=== PATIENT | female | born 1960 | race Caucasian/White ===

== ENCOUNTER 2019-05-04 11:08 | Emergency (ER) | payer OTHER ==
--- OUTSIDE RECORDS SUMMARY | 2019-05-04 11:12 | XMS REPORT ---
:1960 [facility] Address [address] [place] [address] Dr. Swenson [address] [place] [id number] Care Team Providers Name Role Phone Unavailable Unavailable Unavailable Problems This patient has no known problems. Allergies, Adverse Reactions, Alerts This patient has no known allergies or adverse reactions. Medications This patient has no known medications.
--- OUTSIDE RECORDS SUMMARY | 2019-05-04 11:12 | XMS REPORT | Clinical Summary ---
:1960 Author Organization [facility] Address [address] [place] [address] Care Team Providers Name Role Phone Florence Adrian MD Primary Care Provider Allergies Active Allergy Reactions Severity Noted Date Comments No Known Drug Allergies 09/18/2016 Medications Medication Sig Dispensed Refills Start Date End Date Status valACYclovir Take 1 tablet 0 Active (VALTREX) 500 MG by mouth every tablet morning. BOTOX 100 unit recon 0 05/07/2017 Active soln dexlansoprazole 0 09/29/2018 Active (DEXILANT) 60 mg capsule losartan (COZAAR) 25 Take 25 mg by 0 12/16/2018 Active MG tablet mouth daily. tiZANidine (ZANAFLEX) 1 or 2 po qhs 60 tablet 5 12/29/2018 Active 2 MG tablet prn muscle spasm LORAZepam (ATIVAN) 1 Take 1 tablet 60 tablet 4 12/29/2018 Active MG tablet (1 mg total) 0 by mouth 2 (two) times a day. traMADol (ULTRAM) 50 TAKE 1 TABLET 90 tablet 0 03/29/2019 Active mg tablet BY MOUTH THREE 0 TIMES DAILY conj Take 1 tablet 0 Discontinued estrog-medroxyprogest by mouth 9 alvina (PREMPRO) daily. 0.625-2.5 mg per tablet tiZANidine (ZANAFLEX) TAKE 1 30 tablet 0 10/02/2017 Discontinued 2 MG tablet TABLET(2 MG) 8 BY MOUTH DAILY NEEDED FOR NECK SPASM OR PAIN LORAZepam (ATIVAN) 1 TAKE 1 TABLET 60 tablet 5 11/10/2017 Discontinued MG tablet BY MOUTH TWICE 8 DAILY. losartan (COZAAR) 25 Take 25 mg by 0 Discontinued MG tablet mouth as 8 needed. VITAMIN B COMPLEX (B Take 1 tablet 0 Discontinued COMPLEX ORAL) by mouth 8 daily. ascorbic acid, Take 1,000 mg 0 Discontinued vitamin C, (vitamin by mouth 8 C) 1000 MG tablet daily. traMADol (ULTRAM) 50 TAKE 1 TABLET 90 tablet 0 03/10/2018 Discontinued mg tablet BY MOUTH THREE 8 TIMES DAILY LORAZepam (ATIVAN) 1 TAKE 1 TABLET 60 tablet 0 05/06/2018 Discontinued MG tablet BY MOUTH TWICE 8 DAILY LORAZepam (ATIVAN) 1 TAKE 1 TABLET 60 tablet 0 06/04/2018 Discontinued MG tablet BY MOUTH TWICE 8 DAILY traMADol (ULTRAM) 50 Take 1 tablet 90 tablet 0 06/05/2018 Discontinued mg tablet (50 mg total) 8 by mouth 3 (three) times a day. LORAZepam (ATIVAN) 1 TAKE 1 TABLET 60 tablet 0 07/07/2018 Discontinued MG tablet BY MOUTH TWICE 8 DAILY LORAZepam (ATIVAN) 1 TAKE 1 TABLET 60 tablet 0 08/03/2018 Discontinued MG tablet BY MOUTH TWICE 8 DAILY traMADol (ULTRAM) 50 TAKE 1 TABLET 90 tablet 3 08/03/2018 Discontinued mg tablet BY MOUTH THREE 9 TIMES DAILY. LORAZepam (ATIVAN) 1 TAKE 1 TABLET 60 tablet 0 08/27/2018 Discontinued MG tablet BY MOUTH TWICE 8 DAILY LORAZepam (ATIVAN) 1 TAKE 1 TABLET 60 tablet 0 09/25/2018 Discontinued MG tablet BY MOUTH TWICE 8 DAILY ranitidine (ZANTAC) Take 150 mg by 0 Discontinued 75 MG tablet mouth daily. 8 amitriptyline Titrate as 90 tablet 11 09/22/2018 Discontinued (ELAVIL) 25 MG tablet directed up to 8 3 po qhs LORAZepam (ATIVAN) 1 TAKE 1 TABLET 60 tablet 0 10/23/2018 Discontinued MG tablet BY MOUTH TWICE 9 DAILY amitriptyline Take 25 mg by 11 12/14/2018 Discontinued (ELAVIL) 25 MG tablet mouth nightly. 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: Overview: cervical dystonia Palpitations 10/05/2018 Essential hypertension 10/05/2018 SOB (shortness of breath) 07/22/2017 Chest pain 07/22/2017 MVP (mitral valve prolapse) 07/22/2017 Other benign neoplasm of skin of unspecified upper limb, including 01/23/2017 shoulder Segmental dystonia 09/18/2016 Spasmodic torticollis 09/18/2016 Multinodular goiter 02/08/2015 Hemangioma 01/24/2015 Seborrheic keratosis 01/24/2015 Senile lentigo 01/24/2015 Melanoma in situ 10/27/2011 Overview: Overview: Left lateral breast, Tai level II melanoma Encounters Date Type Specialty Care Team Description 04/20/2019 Clinical Support Neurology Jason Heath Spasmodic torticollis ( Primary Dx); MD Antwan 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 Refill Neurology Jason Heath MD 03/09/2019 Telephone Neurology Jason Heath MD 02/09/2019 Refill Neurology Jason Heath MD 12/29/2018 Clinical Support Neurology Jason Heath Spasmodic torticollis ( Primary Dx); MD Antwan Oromandibular dystonia 11/25/2018 Orders Only Cardiology Benito Hope MD 10/18/2018 Refill Neurology Jason Heath MD 10/05/2018 Office Visit Cardiology Benito Hope MD Essential hypertension (Primary Dx); Annual physical exam; Palpitations; Mitral valve prolapse 09/22/2018 Clinical Support Neurology Jason Heath Spasmodic torticollis ( Primary Dx); MD Antwan Segmental dystonia 09/22/2018 Telephone Neurology Jason Heath MD 09/19/2018 Refill Neurology Jason Heath MD 08/27/2018 Refill Neurology Jason Heath MD 08/02/2018 Refill Neurology Jason Heath MD 07/06/2018 Refill Neurology Jason Heath MD 06/05/2018 Refill Neurology Jason Hetah MD 06/04/2018 Refill Neurology Jason Heath MD 06/02/2018 Clinical Support Neurology Jason Heath Spasmodic torticollis ( Primary Dx); MD Antwan Oromandibular dystonia 05/13/2018 Telephone Neurology Jason Heath MD 05/06/2018 Refill Neurology Jason Heath MD after 05/03/2018 Immunizations Name Dates Previously Given Next Due Influenza Split Family History Medical History Relation Name Comments Cancer Brother Bladder No Known Problems Father Heart attack Mother Cora Huerta mild no surgery Other Mother Cora Huerta "Multiple Myeloma" Parkinsonism Mother Cora Huerta Heart attack Paternal Grandfather Sheldon Vincent of it Heart attack Paternal Uncle Brendan Vincent Open heart surgery Relation Name Status Comments Brother Alive Father Mother Cora Huerta Alive Paternal Grandfather Sheldon Vincent Paternal Uncle Brendan Vincent Social History Tobacco Use Types Packs/Day Years Used Date Former Smoker Cigarettes 1.5 20 10/27/1979 - 07/28/2000 Smokeless Tobacco: Never Used Comments: Have not smoked since 1999 Alcohol Use Drinks/Week oz/Week Comments No Sex Assigned at Date Recorded Not on file Job Start Date Occupation Industry Not on file Not on file Not on file Travel History Travel Start Travel End No recent travel history available. Last Filed Vital Signs Vital Sign Reading Time Taken Blood Pressure 131/89 04/20/2019 1:33 PM CDT Pulse 77 04/20/2019 1:33 PM CDT Temperature 36.8 C (98.3 F) 04/20/2019 1:33 PM CDT Respiratory Rate 16 10/05/2018 1:11 PM [employer] Oxygen Saturation 100% 10/22/2018 1:01 PM [employer] Inhaled Oxygen Concentration - - Weight 74.9 kg (165 lb 3.2 oz) 04/20/2019 1:33 PM CDT Height 165.1 cm (5' 5") 04/20/2019 1:33 PM CDT Body Mass Index 27.49 04/20/2019 1:33 PM CDT Plan of Treatment Date Type Specialty Care Team Description 07/27/2019 Clinical Support Neurology Jason Heath MD [address] [facility] [address] [place] [address] [phone] 11/02/2019 Clinical Support Neurology Jason Heath MD [address] [facility] [address] [place] [address] [phone] Health Maintenance Due Date Last Done Comments BREAST CANCER SCREENING 2010 COLONOSCOPY SCREENING 2010 SHINGLES VACCINES (#1) 2010 INFLUENZA VACCINE 05/27/2019 07/25/2018, 07/20/2018, Procedures Procedure Name Priority Date/Time Associated Diagnosis Comments OBTAIN MEDICAL Routine 11/25/2018 RECORDS CV TREADMILL STRESS Routine 10/22/2018 1:37 PM Essential Results for this TEST [employer] hypertension procedure are in Palpitations the results section. ECG 12-LEAD Routine 10/05/2018 1:09 PM Annual physical exam Results for this [employer] procedure are in the results section. after 05/03/2018 Results Obtain medical records (11/25/2018) Narrative Performed At Cv stress test (10/22/2018 1:37 PM [employer]) Resting HR 66 [facility] Resting BP 148 [facility] Peak MET Achieved 10.1 [facility] Protocol Name NEVA [facility] Time in Exercise 00:07:22 [facility] Phase Max Systolic BP 164 [facility] Max Diastolic BP 92 [facility] Max Heart Rate 150 [facility] Max Predicted Heart 162 [facility] Rate Target HR Formula (220 - Age)*85% [facility] Test Indication Essential [facility] Hypertension Arrhy During Ex [facility] ECG Interp Before EX [facility] ECG Interp During Ex [facility] Ex Summary Comment [facility] Overall HR Response [facility] to Exercise Overall BP Response [facility] To Exercise Reason for Target heart rate [facility] Termination achieved/Shortness of breath Stress Test -Resting EKG: Normal sinus rhythm, Normal.-Normal HR response to exercise-Normal BP response to exercise-Poor exercise tolerance for age-No arrhythmias. No ST changes. ---Impressions-Inconclusive, subma [facility] Impression ximal stress-- Specimen Narrative Performed At Performing Organization Address [facility] [address] [place] [address] ECG 12 lead (10/05/2018 1:09 PM [employer]) Ventricular rate 76 [facility] Atrial rate 76 [facility] ME interval 140 [facility] QRSD interval 88 [facility] QT interval 380 [facility] QTC interval 427 [facility] P axis 1 69 [facility] QRS axis 1 59 [facility] T wave axis 37 [facility] EKG impression Normal sinus [facility] rhythm-Normal ECG-In automated comparison with ECG of 22-JUL-2017 13:31,-No significant change was found- Specimen Narrative Performed At Performing Organization Address [facility] Phone Number [facility] [address] [place] [address] after 05/03/2018 Advance Directives Patient has advance care planning documents on file. For more information, please contact:Pee Mariano[address] [place] [address]
--- NOTE | 2019-05-04 11:35 | RAD REPORT ---
EXAM DESCRIPTION: CT - Head Brain Wo Cont - 05/04/2019 11:25 am CLINICAL HISTORY: Right-sided headache, vision loss COMPARISON: None. TECHNIQUE: Axial 5 mm thick images of the head were obtained without IV contrast. All CT scans are performed using dose optimization technique as appropriate and may include automated exposure control or mA/KV adjustment according to patient size. FINDINGS: No intracranial hemorrhage, mass, edema or shift of mid-line structures. No acute infarcti on changes seen. No abnormal extra-axial fluid collections. Ventricles are normal. Patient does appea r to have some chronic ischemic change in the cerebral white matter. Mastoid air cells and visualized portions of the paranasal sinuses are clear. No acute bony findings. IMPRESSION: Negative CT head examination for acute finding. Suspected chronic ischemic change in the cerebral white matter.
[2019-05-04 11:40] LABS: Absolute Lymphocytes (CBC) 2.3 K/uL (0.7-4.9); Basophils % 0.6 % (0-1.3); Eosinophils % 1.3 % (0-4.4); Hematocrit 40.8 % (36.0-45.0); Lymphocytes % 29.1 % (15.3-44.8); MPV 8.8 fL (7.6-11.3); Monocytes % 11.7 % (3.3-12.3); RBC Red Blood Cell Count 4.37 M/uL (3.86-4.86)
[2019-05-04 12:20] LABS: Potassium 3.5 mmol/L (3.5-5.1)
--- NOTE | 2019-05-04 12:29 | EKG ---
Test Date: 2019-05-04 Test Time: 11:21:22 Nitrating Acid Mixer: SHANIKA MEASUREMENT RESULTS: Intervals: Rate: 73 AL: 146 QRSD: 86 QT: 386 QTc: 425 [place]: P: 73 AL: 146 QRS: 58 T: 66 INTERPRETIVE STATEMENTS: Normal sinus rhythm Normal ECG Compared to ECG 06/15/2011 11:42:35 Sinus bradycardia no longer present Electronically Signed On 05-04-19 12:28:22 CDT by Shahab Lucio
--- NOTE | 2019-05-04 13:32 | RAD REPORT ---
EXAM DESCRIPTION: MRI - Brain W/Wo Cont - 05/04/2019 1:21 pm CLINICAL HISTORY: TIA/visual disturbance COMPARISON: May 04, [address] TECHNIQUE: Axial, sagittal, and coronal magnetic images of the brain were obtained. 17 cc MultiHance administered intravenously FINDINGS: Moderate abnormal signal within the periventricular, deep and subcortical white matter krystina aterally. The ventricles are normal in caliber. Diffusion-weighted sequences do not demonstrate evidence of an acute infarction. No abnormal enhancement within the brain is seen. An extra-axial fluid collection is not noted. Fluid within the sinuses/mastoids is not seen IMPRESSION: Moderate abnormal signal within the periventricular, deep and subcortical white matter b ilaterally probably ischemic changes secondary to small vessel disease. A demyelinating process can a lso result in this appearance
--- NOTE | 2019-05-04 13:33 | RAD REPORT ---
EXAM DESCRIPTION: MRI - MRA Head Wo Cont - 05/04/2019 1:21 pm CLINICAL HISTORY: TIA/blurred vision COMPARISON: None. TECHNIQUE: Magnetic resonance angiogram was performed. 3D MIPS reconstruction performed FINDINGS: The anterior cerebral, middle cerebral, posterior cerebral, distal internal carotid and ba silar arteries do not demonstrate a significant stenosis. An aneurysm is not displayed. IMPRESSION: Unremarkable MRA brain.
--- NOTE | 2019-05-04 13:35 | RAD REPORT ---
EXAM DESCRIPTION: MRI - MRA Neck W/Wo Cont - 05/04/2019 1:21 pm CLINICAL HISTORY: TIA blurred vision COMPARISON: None. TECHNIQUE: Magnetic resonance angiogram of the neck was performed. Seventeen cc MultiHance was admin istered intravenously. 3D MIPS reconstruction performed FINDINGS: Mild plaque is present within the common carotid and internal carotid arteries bilaterally . External carotid artery is unremarkable. An aneurysm is not seen. The vertebral arteries are codominant without visualization of an abnormality. IMPRESSION: Mild stenosis internal carotid arteries NASCET criteria used. Mild 0-49% stenosis Moderate 50-69% stenosis Severe 70-99% stenosis
--- NOTE | 2019-05-04 15:43 | ER ---
Nurse's Notes [facility] Name: Hayde Mccall Age: 58 yrs Sex: Female : 1960 Arrival Date: 05/04/2019 Time: 11:10 Bed 3 Private MD: Diagnosis: Transient cerebral ischemic attack, unspecified Presentation: 05/04 11:10 Presenting complaint: Patient states: L sided headache with partial visual disturbance ss to R eye and "tightness" to R side of face that began 30 minutes ago. Pt reports that symptoms have resolved other than her headache. 11:10 Transition of care: patient was not received from another setting of care. Onset of ss symptoms was May 04, 2019 at 10:40. Care prior to arrival: None. 11:10 Method Of Arrival: Ambulatory ss 11:10 Acuity: VINCENT 2 ss 11:25 Risk Assessment: Do you want to hurt yourself or someone else? Patient reports no hj desire to harm self or others. Initial Sepsis Screen: Does the patient meet any 2 criteria? No. Patient's initial sepsis screen is negative. Does the patient have a suspected source of infection? No. Patient's initial sepsis screen is negative. Triage Assessment: 11:10 Headache History: Denies prior headaches. General: Appears in no apparent distress. hj uncomfortable, Behavior is calm, cooperative, appropriate for age. Pain: Complains of pain in face Pain currently is 6 out of 10 on a pain scale. Also complains of. 13:37 Pain: Pain began. hj Historical: - Allergies: 11:28 No Known Allergies; ss - PMHx: 11:28 Hypertension; ss - Immunization history:: Adult Immunizations up to date. - Social history:: Smoking status: Patient/guardian denies using tobacco. - Ebola Screening: : Patient denies exposure to infectious person Patient denies travel to an Ebola-affected area in the 21 days before illness onset. Screenin:30 Abuse screen: Denies threats or abuse. Denies injuries from another. Nutritional ss screening: No deficits noted. Tuberculosis screening: Never had TB. Patient has been NPO before screening. The patient is alert, able to follow commands. The patient does not exhibit slurred or garbled speech The patient is not exhibiting difficulty speaking. The patient does not exhibit difficulty understanding words. The patient is able to swallow own secretions with no drooling or need for suction. Patient tolerated one teaspoon of water. No drooling, immediate coughing, gurgling, or clearing of the throat was noted. The patient tolerated 90mL of water. No drooling, immediate coughing, gurgling, or clearing of the throat was noted. The patient passed the bedside swallow screening. Oral medications may be given as ordered. Contact Physician for further diet orders. Fall Risk No fall in past 12 months (0 pts). Secondary diagnosis (15 points) possible TIA. IV access (20 points). Ambulatory Aid- None/Bed Rest/Nurse Assist (0 pts). Gait- Normal/Bed Rest/Wheelchair (0 pts) Mental Status- Oriented to own ability (0 pts). Assessment: 11:16 Reassessment: In CT now. ss 11:16 General: Appears in no apparent distress. uncomfortable, Behavior is calm, cooperative, hj appropriate for age. Pain: Denies pain. Neuro: Level of Consciousness is awake, alert, obeys commands, Oriented to person, place, time. Neuro: Reports headache numbness in face. Cardiovascular: Denies chest pain. Respiratory: Airway is patent Respiratory effort is even, unlabored, Respiratory pattern is regular, symmetrical. GI: No signs and/or symptoms were reported involving the gastrointestinal system. : No signs and/or symptoms were reported regarding the genitourinary system. EENT: No signs and/or symptoms were reported regarding the EENT system. Derm: No signs and/or symptoms reported regarding the dermatologic system. Musculoskeletal: No signs and/or symptoms reported regarding the musculoskeletal system. 11:30 Reassessment: at bedside at this time. sg 11:30 Reassessment: provider in room;. hj 12:20 Reassessment: pt at MRI;. hj 13:30 Reassessment: Patient and/or family updated on plan of care and expected duration. Pain hj level reassessed. Patient is alert, oriented x 3, equal unlabored respirations, skin warm/dry/pink. back in room;. 14:23 Reassessment: Patient and/or family updated on plan of care and expected duration. Pain hj level reassessed. Patient is alert, oriented x 3, equal unlabored respirations, skin warm/dry/pink. awaiting MRI results;. 15:13 Reassessment: Patient and/or family updated on plan of care and expected duration. Pain hj level reassessed. Patient is alert, oriented x 3, equal unlabored respirations, skin warm/dry/pink. awaiting results and POC:. Vital Signs: 11:24 BP 177 / 98; Pulse 77; Resp 18; Pulse Ox 100% on R/A; hj 11:28 Weight 74.84 kg; Height 5 ft. 5 in. (165.10 cm); Pain 7/10; ss 12:32 BP 140 / 89; Pulse 85; Resp 18; Pulse Ox 99% on R/A; hj 13:39 BP 144 / 90; Pulse 79; Resp 18; Pulse Ox 100% on R/A; hj 14:22 BP 139 / 83; Pulse 84; Resp 18; Pulse Ox 100% on R/A; hj 15:12 BP 145 / 90; Pulse 78; Resp 18; Pulse Ox 100% on R/A; hj 11:28 Body Mass Index 27.46 (74.84 kg, 165.10 cm) NIH Stroke Scale Scores: 15:37 NIHSS Score: 0 ED Course: 11:10 Patient arrived in ED. as 11:12 Sandeep Betancourt, RN is Primary Nurse. hj 11:24 Initial lab(s) drawn, by me, sent to lab. EKG done. Inserted saline lock: 22 gauge in hj right antecubital area, using aseptic technique. Blood collected. 11:25 Arm band placed on right wrist. hj 11:25 Patient has correct armband on for positive identification. Placed in gown. Bed in low hj position. Call light in reach. Side rails up X 1. Adult w/ patient. 11:28 Triage completed. ss 11:32 Orion Vizcaino MD is Attending Physician. gs 12:02 EKG done, by scrub technician. reviewed by Orion Vizcaino MD. dt2 12:40 Patient moved to MRI via wheelchair. em2 13:20 MRA Head Wo Cont In Process Unspecified. EDMS 13:20 MRA Neck W/Wo Cont In Process Unspecified. EDMS 13:20 Brain W/Wo Cont In Process Unspecified. EDMS 15:42 Abhi Malik MD is Referral Physician. gs 15:52 No provider procedures requiring assistance completed. IV discontinued, intact, hj bleeding controlled, No redness/swelling at site. Pressure dressing applied. Administered Medications: 15:45 Drug: Aspirin Chewable Tablet 324 mg Route: PO; 15:48 Follow up: Response: No adverse reaction Point of Care Testing: Blood Glucose: 11:24 Blood Glucose: 97 mg/dL; Ranges: Outcome: 15:42 Discharge ordered by . 15:52 Discharged to home ambulatory. 15:52 Condition: stable 15:52 Discharge instructions given to patient, Instructed on discharge instructions, follow up and referral plans. Demonstrated understanding of instructions, follow-up care. 15:53 Patient left the ED. NIH Stroke Scale - NIH Stroke Score Date: 05/04/2019 Time: 15:37 Total Score = 0 1a. Level of Consciousness (LOC) - 0(Alert) 1b. Level of Consciousness (LOC) (Year \\T\\ Age) - 0(Both) 1c. LOC Commands (Open \\T\\ Closes Eyes/Video Game Tester) - 0(Both) 2. Best Gaze (Lateral Gaze Paresis) - 0(Normal) 3. Visual Field Loss - 0(No visual loss) 4. Facial Palsy - 0(Normal) 5a. Left Arm: Motor (10-second hold) - 0(No drift) 5b. Right Arm: Motor (10-second hold) - 0(No drift) 6a. Left Leg: Motor (5-second hold - always test supine) - 0(No drift) 6b. Right Leg: Motor (5-second hold - always test supine) - 0(No drift) 7. Limb Ataxia (finger/nose \\T\\ heel/souza - test with eyes open) - 0(Absent) 8. Sensory Loss (pinprick arms/legs/face) - 0(Normal) 9. Best Language: Aphasia (description/naming/reading) - 0(No aphasia) 10. Dysarthria (speech clarity - read or repeat words) - 0(Normal) 11. Extinction and Inattention (visual/tactile/auditory/spatial/personal) - 0(No abnormality) Initials: Signatures: Dispatcher [employer] EDKrishna Ferrera RN RN sg Martinez, Amelia as Smirch, Shelby, RN RN José Luis Castro Henry, RN RN hj Starr, Gregory, MD MD Nancy Nguyen2 Corrections: (The following items were deleted from the chart) 11:28 11:10 Presenting complaint: Patient states: R sided headache with partial ss visual disturbance to L eye and face "tightness" that began 30 minutes ago. Pt reports that symptoms have resolved besides her headache. ss 13:38 13:37 Pain: Pain began hj hj
--- NOTE | 2019-05-04 15:44 | EDPHYS ---
Physician Documentation [facility] Name: Hayde Mccall Age: 58 yrs Sex: Female : 1960 Arrival Date: 05/04/2019 Time: 11:10 Bed 3 Private MD: ED Physician Orion Vizcaino HPI: 05/04 15:37 This 58 yrs old Female presents to ER via Ambulatory with complaints of gs Vision Problem, Numbness Of Face, Headache. 15:37 Onset: The symptoms/episode began/occurred at 10:30. Duration: This was a single gs incident. The symptoms are alleviated by nothing. The symptoms are aggravated by nothing. Associated signs and symptoms: Pertinent positives: headache. Severity of symptoms: At their worst the symptoms were severe in the emergency department the symptoms have resolved. The patient has experienced a previous episode. STARTED WITH VISUAL DISTURBANCE LEFT EYE AND FACIAL TIGHTNESS, THE STARTED TO GET A HEADACHE ON LEFT GRADUAL NOT SEVERE SYMPTOMS RESOLVED STILL HAS SLIGHT HEADACHE. Historical: - Allergies: 11:28 No Known Allergies; ss - PMHx: 11:28 Hypertension; ss - Immunization history:: Adult Immunizations up to date. - Social history:: Smoking status: Patient/guardian denies using tobacco. - Ebola Screening: : Patient denies exposure to infectious person Patient denies travel to an Ebola-affected area in the 21 days before illness onset. ROS: 15:37 All other systems are negative. gs Exam: 15:37 Head/Face: Normocephalic, atraumatic. Eyes: Pupils equal round and reactive to light, gs extra-ocular motions intact. Lids and lashes normal. Conjunctiva and sclera are non-icteric and not injected. Cornea within normal limits. Periorbital areas with no swelling, redness, or edema. ENT: Nares patent. No nasal discharge, no septal abnormalities noted. Tympanic membranes are normal and external auditory canals are clear. Oropharynx with no redness, swelling, or masses, exudates, or evidence of obstruction, uvula midline. Mucous membranes moist. Neck: Trachea midline, no thyromegaly or masses palpated, and no cervical lymphadenopathy. Supple, full range of motion without nuchal rigidity, or vertebral point tenderness. No Meningismus. Chest/axilla: Normal chest wall appearance and motion. Nontender with no deformity. No lesions are appreciated. Cardiovascular: Regular rate and rhythm with a normal S1 and S2. No gallops, murmurs, or rubs. Normal PMI, no JVD. No pulse deficits. Respiratory: Lungs have equal breath sounds bilaterally, clear to auscultation and percussion. No rales, rhonchi or wheezes noted. No increased work of breathing, no retractions or nasal flaring. Abdomen/GI: Soft, non-tender, with normal bowel sounds. No distension or tympany. No guarding or rebound. No evidence of tenderness throughout. Back: No spinal tenderness. No costovertebral tenderness. Full range of motion. Skin: Warm, dry with normal turgor. Normal color with no rashes, no lesions, and no evidence of cellulitis. MS/ Extremity: Pulses equal, no cyanosis. Neurovascular intact. Full, normal range of motion. 15:37 Constitutional: The patient appears in no acute distress, alert, awake. 15:37 Neuro: Orientation: is normal, Mentation: is normal, Memory: is normal, Cranial nerves: CN II- XII are normal as tested, Cerebellar function: normal finger to nose testing, Motor: moves all fours, strength is 5/5 in all extremities, Sensation: no obvious gross deficits, pin prick testing is normal, Gait: not applicable Vital Signs: 11:24 BP 177 / 98; Pulse 77; Resp 18; Pulse Ox 100% on R/A; 11:28 Weight 74.84 kg; Height 5 ft. 5 in. (165.10 cm); Pain 7/10; ss 12:32 BP 140 / 89; Pulse 85; Resp 18; Pulse Ox 99% on R/A; hj 13:39 BP 144 / 90; Pulse 79; Resp 18; Pulse Ox 100% on R/A; hj 14:22 BP 139 / 83; Pulse 84; Resp 18; Pulse Ox 100% on R/A; hj 15:12 BP 145 / 90; Pulse 78; Resp 18; Pulse Ox 100% on R/A; 11:28 Body Mass Index 27.46 (74.84 kg, 165.10 cm) NIH Stroke Scale Scores: 15:37 NIHSS Score: 0 gs MDM: 11:32 Patient medically screened. 15:37 Differential diagnosis: CVA, TIA, MIGRAINE. Data reviewed: vital signs, nurses notes, lab test result(s), EKG, radiologic studies. Counseling: I had a detailed discussion with the patient and/or guardian regarding: the historical points, exam findings, and any diagnostic results supporting the discharge/admit diagnosis, the need for outpatient follow up, a neurologist. Response to treatment: the patient's symptoms have resolved after treatment, and as a result, I will discharge patient. 05/04 11:33 Order name: Basic Metabolic Panel; Complete Time: 12:51 05/04 11:33 Order name: CBC with Diff 05/04 11:13 Order name: CT Head Brain wo Cont 05/04 11:43 Order name: CBC with Automated Diff; Complete Time: 12:51 EDMS 05/04 11:45 Order name: CT; Complete Time: 12:51 EDMS 05/04 11:33 Order name: EKG; Complete Time: 11:34 05/04 11:33 Order name: Accucheck; Complete Time: 12:22 05/04 11:33 Order name: Cardiac monitoring; Complete Time: 12:23 05/04 11:33 Order name: EKG - Nurse/Tech; Complete Time: 12:23 05/04 12:41 Order name: MRA Head Wo Cont; Complete Time: 15:36 EDMS 05/04 12:44 Order name: MRA Neck W/Wo Cont; Complete Time: 15:36 EDMS 05/04 12:44 Order name: Brain W/Wo Cont; Complete Time: 15:36 EDMS 05/04 11:33 Order name: IV Saline Lock; Complete Time: 12:23 05/04 11:33 Order name: Labs collected and sent; Complete Time: 12:23 05/04 11:33 Order name: NPO; Complete Time: 12:23 05/04 11:33 Order name: O2 Per Protocol; Complete Time: 12:23 05/04 11:33 Order name: O2 Sat Monitoring; Complete Time: 12:23 05/04 11:33 Order name: Stroke Swallow Screen; Complete Time: 12:23 gs Administered Medications: 15:45 Drug: Aspirin Chewable Tablet 324 mg Route: PO; hj 15:48 Follow up: Response: No adverse reaction hj Point of Care Testing: Blood Glucose: 11:24 Blood Glucose: 97 mg/dL; hj Ranges: Critical Glucose Levels:Adult <50 mg/dl or >400 mg/dl <40 mg/dl or >180 mg/dl Disposition: 05/04/19 15:42 Discharged to Home. Impression: Transient cerebral ischemic attack, unspecified. - Condition is Stable. - Discharge Instructions: Transient Ischemic Attack, Aspirin and Your Heart. - Medication Reconciliation Form, Thank You Letter, Antibiotic Education, Prescription Opioid Use form. - Follow up: Abhi Malik MD; When: 2 - 3 days; Reason: Re-evaluation by your physician. - Notes: 81MG ASPIRIN DAILY NIH Stroke Scale - NIH Stroke Score Date: 05/04/2019 Time: 15:37 Total Score = 0 1a. Level of Consciousness (LOC) - 0(Alert) 1b. Level of Consciousness (LOC) (Year \T\ Age) - 0(Both) 1c. LOC Commands (Open \T\ Closes Eyes/Hyperbaric Technician) - 0(Both) 2. Best Gaze (Lateral Gaze Paresis) - 0(Normal) 3. Visual Field Loss - 0(No visual loss) 4. Facial Palsy - 0(Normal) 5a. Left Arm: Motor (10-second hold) - 0(No drift) 5b. Right Arm: Motor (10-second hold) - 0(No drift) 6a. Left Leg: Motor (5-second hold - always test supine) - 0(No drift) 6b. Right Leg: Motor (5-second hold - always test supine) - 0(No drift) 7. Limb Ataxia (finger/nose \T\ heel/souza - test with eyes open) - 0(Absent) 8. Sensory Loss (pinprick arms/legs/face) - 0(Normal) 9. Best Language: Aphasia (description/naming/reading) - 0(No aphasia) 10. Dysarthria (speech clarity - read or repeat words) - 0(Normal) 11. Extinction and Inattention (visual/tactile/auditory/spatial/personal) - 0(No abnormality) Initials: Signatures: Dispatcher [employer] EDHI Kenyetta Taylor RN RN ss Joaquin, Henry, RN RN hj Starr, Gregory, MD MD gs Corrections: (The following items were deleted from the chart) 12:41 11:38 MR STROKE PROTOCOL+MRI.RAD.MARTÍNEZ ordered. EDHI EDHI 15:53 15:42 05/04/2019 15:42 Discharged to Home. Impression: Transient cerebral hj ischemic attack, unspecified. Condition is Stable. Forms are Medication Reconciliation Form, Thank You Letter, Antibiotic Education, Prescription Opioid Use. Follow up: Abhi Malik; When: 2 - 3 days; Reason: Re-evaluation by your physician. gs
[2019-05-04] MEDS ORDERED: ASPIRIN 81 MG CHEWABLE TABLET ONE (16:02)
== END 2019-05-04 15:53 | disposition home or self-care (01) ==
LOC: ER 11:08
DX: G45.9 Transient cerebral ischemic attack, unspecified (principal); I10 Essential (primary) hypertension
CPT/HCPCS: 36415; 70450; 70544; 70549; 70553; 80048; 82962; 85025; 93005; 99285; A9577